=== PATIENT | male | born 2000 ===

== ENCOUNTER 2023-02-20 11:26 | Emergency (ER) | payer SELFPAY ==
[2023-02-20] MEDS ORDERED: Fluorescein Opthalmic Strip ONE (11:38)
[2023-02-20] MEDS ORDERED: Proparacaine 0.5% Opth 15 ML BOT ONE (11:39)
[2023-02-20] MEDS ORDERED: Boostrix 0.5 ML (Tdap) VIAL (>/=7 yrs of age) ONE (11:39)
== END 2023-02-20 12:06 | disposition home or self-care (01) ==
LOC: ERS 11:26
DX: S05.91XA Unspecified injury of right eye and orbit, initial encounter (principal); Z23 Encounter for immunization; W22.8XXA Striking against or struck by other objects, initial encounter
CPT/HCPCS: 90471; 90715